=== PATIENT | female | born 1950 | race Caucasian/White ===

== ENCOUNTER 2017-01-01 08:46 | Outpatient (CLI) | payer OTHER ==
[2017-01-01 09:11] VITALS: BP 161/87; TEMP 97.7
[2017-01-01] MEDS ORDERED: PROLIA SUBCUT STA (09:12)
== END 2017-01-01 08:47 | disposition home or self-care (01) ==
LOC: OPMED 08:46
PROVIDERS: ATTEND Internal Medicine
DX: M81.0 Age-related osteoporosis without current pathological fracture (principal)
CPT/HCPCS: 96372

== ENCOUNTER 2017-07-09 09:35 | Outpatient (CLI) ==
[2017-07-09] MEDS ORDERED: PROLIA SUBCUT STA (09:57)
[2017-07-09 09:59] VITALS: BP 132/74; TEMP 98
== END 2017-07-09 09:36 | disposition home or self-care (01) ==
LOC: OPMED 09:35
PROVIDERS: ATTEND Internal Medicine
DX: M81.0 Age-related osteoporosis without current pathological fracture (principal)
CPT/HCPCS: 96372

== ENCOUNTER 2017-09-12 09:33 | Outpatient (CLI) ==
--- NOTE | 2017-09-12 10:29 | CT ---
EXAM: CT ABDOMEN AND PELVIS HISTORY: Abdominal pain, mid going to back TECHNIQUE: CT abdomen and pelvis without intravenous contrast. Images were reconstructed using 5 mm section thickness. Reformations were prepared. COMPARISON: 07/10/2010 FINDINGS: Diagnostic limitations exist without including contrast enhanced images. No focal hepatic or splenic lesions identified. Gallbladder is absent. Pancreas and adrenal glands appear normal. There is a stable 1.8 cm partially fatty right renal cortical nodule posteriorly at the lower aspect probably re presenting an angiomyolipoma. Kidneys and ureters were otherwise unremarkable. Minimal atherosclero tic disease. Stomach appears normal. Normal appendix. General bowel gas pattern and appearance is within normal limits. No uterus is identified. Normal urinary bladder. No ascites or inflammatory infiltration o f the abdominal fat. Ventral abdominal wall is intact without herniation. Bones appear appropriate for age. Lung bases a re clear. There is no pneumoperitoneum. IMPRESSION: 1. No etiology for the patient's symptoms were found. 2. 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
== END 2017-09-12 09:34 | disposition home or self-care (01) ==
LOC: RAD 09:33
PROVIDERS: ATTEND Internal Medicine
DX: R10.9 Unspecified abdominal pain (principal)

== ENCOUNTER 2018-01-22 09:54 | Outpatient (CLI) | payer OTHER ==
[2018-01-22] MEDS ORDERED: PROLIA SUBCUT STA (10:03)
[2018-01-22 10:09] VITALS: BP 146/88; TEMP 97.3
== END 2018-01-22 09:55 | disposition home or self-care (01) ==
LOC: OPMED 09:54
PROVIDERS: ATTEND Internal Medicine
DX: M81.0 Age-related osteoporosis without current pathological fracture (principal)
CPT/HCPCS: 96372

== ENCOUNTER 2018-06-14 10:13 | Emergency (ER) | payer OTHER ==
[2018-06-14 10:23] VITALS: BP 151/90; TEMP 98; BMI 39.1
[2018-06-14] MEDS ORDERED: LIDOCAINE HCL 1% SDV SUBCUT STA (10:30)
--- NOTE | 2018-06-14 10:52 | ED.PDOC ---
General ED Provider: Dr. JONI GREENWOOD Chief Complaint: Non-specific Complaint Stated Complaint: Part of peirced earring stuck in left ear canal. clipped off front of earring. Will not come out. Tender, reddened. Time Seen by Physician: 10:50 Mode of Arrival: Walk-In Information Source: Patient Primary Care Provider: JORDY CURIEL Nursing and Triage Documentation Reviewed and Agree: Yes Does patient meet sepsis criteria?: No System Inflammatory Response Syndrome: Not Applicable Sepsis Protocol: For patient's 13 years and over: Temp is 96.8 and below OR 101 and greater Pulse >90 BPM Resp >20/minute Acutely Altered Mental Status Are patient's symptoms suggestive of a new infection, such as: -Pneumonia -Skin, Soft Tissue -Endocarditis -UTI -Bone, Joint Infection -Implantable Device -Acute Abdominal Infection -Wound Infection -Meningitis -Blood Stream Catheter Infection -Unknown EENT Complaint Exam - Ear Complaint/Exam Onset/Duration: 1 day Symptoms Are: Still present Timing: Constant Initial Severity: Moderate Current Severity: Moderate Aggravating: Reports: Foreign body (on the left ear lobe ), Tugging on ear Alleviating: Reports: None Associated Signs and Symptoms: Reports: Foreign body sensation, Pain to external ear. Denies: Ear trauma, Ear swelling, Discharge, Fever, Hearing loss , Bleeding, Sore throat, Headache, URI symptoms, Rash, Pain to external face Ear Surgical History: None Vesicles to External Pinna: No Vesicles to Tragus: No Review of Systems - Review Of Systems Constitutional: Reports: No symptoms Ears, Nose, Mouth, Throat: Reports: Ear pain (left ear lobe ) Respiratory: Reports: No symptoms Cardiac: Reports: No symptoms Skin: Reports: No symptoms Neurological: Reports: Anxiety All Other Systems: Reviewed and Negative Past Medical History - Past Medical History Previously Healthy: Yes Endocrine: Reports: None Cardiovascular: Reports: None Respiratory: Reports: None Hematological: Reports: None Gastrointestinal: Reports: None Genitourinary: Reports: None Neuro/Psych: Reports: None Musculoskeletal: Reports: None Cancer: Reports: None Last Menstrual Period: unknown - Surgical History General Surgical History: Reports: None - Family History Family History: Reports: None - Social History Smoking Status: Former smoker Hx Substance Use: No Alcohol Screening: Occasionally - Immunizations Tetanus Shot up to Date: Yes (2010) Physical Exam - Physical Exam Appearance: Obese Pain Distress: Mild Eyes: RHEA, EOMI, Conjunctiva clear ENT: Nose normal Neck: Supple Respiratory: Airway patent, Breath sounds clear, Breath sounds equal, Respirations nonlabored Cardiovascular: RRR, Pulses normal, No rub, No murmur Skin: Warm, Dry Neurological: Alert, Oriented Psychiatric: Anxious Procedures - Foreign Body Removal Location of Foreign Object: left ear lobe Foreign Object: Piece of an ear ring Depth of Object: deep Type of Anesthesia: Local Medication Used: Yes: Lidocaine Prep: Saline Irrigation: No Skin Incised: Yes Instruments Used: Yes: Forceps, Other (scaple ) Foreign Body Identified and Removed: Yes (small piece of metal earing ) Critical Care Note - Critical Care Note Total Time (mins): 0 Course - Course Orders, Labs, Meds: Orders Category Date Time Status Lidocaine HCl/Pf [Lidocaine HCl 1% Sdv] MEDS 06/14/18 10:30 Discontinued 5 ml SUBCUT ONCE STA Medications Discontinued Medications Generic Name Dose Route Start Last Admin Trade Name Freq PRN Reason Stop Dose Admin Lidocaine HCl 5 ml 06/14/18 10:30 Lidocaine Hcl 1% Sdv SUBCUT 06/14/18 10:31 ONCE STA Vital Signs: Temp Pulse Resp BP Pulse Ox 06/14/18 10:14 98.0 F 78 20 151/90 H 93 L Departure - Departure Time of Disposition: 10:52 Disposition: HOME SELF-CARE Discharge Problem: Foreign body in left ear lobe Qualifiers: Encounter type: initial encounter Qualified Code(s): S00.452A - Superficial foreign body of left ear, initial encounter Instructions: Ear Foreign Body (ED), Eye Foreign Body (ED) Condition: Stable Pt referred to PMD for follow-up: Yes IPMP verified?: No Additional Instructions: Keep area clean and dry Do not use earring for 2 weeks. Follow up with PCP in 3 days Return if worse or you note sign of infection. Allergies/Adverse Reactions: Allergies CONTRAST DYE Adverse Reaction (Uncoded 05/10/15 09:19) Home Medications: Ambulatory Orders Atorvastatin Calcium [Lipitor] 40 mg PO DAILY 05/10/15 Montelukast Sodium [Singulair] 10 mg PO DAILY 05/10/15 Multivitamin 1 cap PO DAILY 05/10/15 Pantoprazole Sodium [Protonix] 40 mg PO DAILY 05/10/15 Disposition Discussed With: Patient
== END 2018-06-14 11:03 | disposition home or self-care (01) ==
LOC: ED 10:13
DX: S00.452A Superficial foreign body of left ear, initial encounter (principal)
CPT/HCPCS: 99282

== ENCOUNTER 2018-09-15 10:00 | Outpatient (RCR) ==
--- NOTE | 2018-09-10 14:40 | RS.OPPTEV2 ---
Date of Note: 09/10/18 Visit #: 1 Number of visits approved by Insurance: NA Date of Evaluation: 09/10/18 Payer Source: MEDICARE Surgery Performed?: No Treatment Diagnosis: Left foot pain, Plantar fasciitis History of Condition/Mechanism of Injury:: Patient reports ongoing pain with left heel for over 6 months. States she had pain in the right foot, but it has resolved. She reports a history of fracture with no surgery to the left foot, but no recent injury that caused this pain in the foot/heel. Prior Level of Function.....Patient was independent with: ADL's, Self Care, Work /Vocation, Caregiving, Ambulation/Mobility, Community Integration/Access Functional Limitations: Sleep, ADL's, Standing, Squatting, Ambulation, Community Access/Integration Current Subjective/complaints:: Patient reports she has tried several things to reduce the pain in the left foot, including shoe inserts, wearing a boot, stretching, rolling tennis ball, and icing. States she received an injection into the foot yesterday. States she had one 4-6 months ago, which helped temporarily. She reports pain with every step. States she has avoided activity because of the pain and has gained weight. She hopes to get some relief with therapy to avoid surgery. She has sporadic tingling and burning in the forefoot and toes of both feet. She reports pain will wake her up at times. Describes pain in the heel and cramping into the arch of the foot. She is considering buying a Plantar Fasciitis Night Sock. States X ray of left foot revealed a significant spur on the heel. Treatment Side (optional): Left Medical History Medical History Comments:: Hx includes Fx of the left foot. Smoking Status: Former smoker Hx Home Medications: Lipitor, singulair, protonix, Mobic (takes for her shoulder ) Patient's Goals: Her goal is to get relief of left foot pain and avoid surgery. Pain Assessment - Pain Description Pain Location: Left heel Current Pain Intensity: 6/10 Worst Pain Intensity: 10/10 Functional Outcome Measure LE Functional Scale: 36 (36/80= 55% impairment) - G Codes & Severity Modifier G Codes & Modifier: NA Source of G Code score: NA Observation - Observation Inspection: Left foot demonstrates a .25 cm reddish area on the medial side of the calcaneus where the patients says the injection was given. Demonstrates no other redness or other discoloration. Exhibits slight puffiness posterior and inferior to the left lateral malleoli. Comments: In standing, right foot demonstrates minimal longitudinal arch. left foot demonstrates a normal longitudinal arch. Girth Measurement Lower: Left malleoli 23.5 cm, metheads 20.75 cm Gait - Gait Pattern Gait Comments: Mrs. Gacria ambulates in the department without an assistive device with decreased stance on the left LE and decreased heelstrike. - Left Ankle ROM Left DF with Knee extension: 8 degrees Comments: All else of left ankle is WFL's. - Right Ankle ROM Right DF with Knee extension: 10 degrees Comments: All else of right ankle is WFL's. - Left Ankle Strength Left Dorsiflexion: 5 Normal Left Plantar flexion: 5 Normal Left Eversion: 4+ Good + Left Inversion: 4+ Good + Comments: knee strength 5/5. - Right Ankle Strength Right Dorsiflexion: 5 Normal Right Plantarflexion: 5 Normal Right Eversion: 4+ Good + Right Inversion: 4+ Good + Comments: Knee strength 5/5. Palpation Comments:: Tenderness reported along the medial aspect of the heel, which was also the injection site. Reports mild tenderness over the volar aspect of the heel, more anteriorly over the insertion of the plantar fascia. Sensation - Sensation Right Lower Extremity: Intact/Normal Left Lower Extremity: Intact/Normal Additional Comments: Additional Comments: Unable to perform valid Squeeze test to the calcaneus due to moderate tenderness already present from injection yesterday. - Treatment Modality: Ultrasound Parameters/Method Applied: 1.5 w/cm2 continuous X 10 mins to left foot: emphasis on volar, medial, and lateral aspect of the heel. Patient Position: Sitting (with leg on stool) Interventions - Exercise/Activities/Manual Therapy Exercises/Activities: Pt already performing heelcord stretching with band and off a step. Reviewed these stretches and recommended she hold the stretch at least 20 seconds. Also instructed patient in plantar fascia stretch and towel/ toe curl exercises for anterior tib. Advised her to roll a frozen water bottle on the bottom of her foot, especially at the end of the day. Manual Therapy: following US, manual therapy to the plantar fascia was performed along with stretching of the plantar fascia X 6-7 mins. HOME EXERCISE PROGRAM: Heelcord stretching, plantar fascia stretching, towel/ toe curl for anterior tib. - Charges Timed Code Treatment Minutes: 17 mins Total Treatment Time: 50 mins Procedures billed for this date of service:: Christine Boogie, US EVALUATION COMPLEXITY LEVEL EVALUATION COMPLEXITY LEVEL: HISTORY: Low, EXAM OF BODY SYSTEMS: Low (Left ankle pain, ROM, MS), CLINICAL PRESENTATION: Low, CLINICAL DECISION MAKING: Low Assessment Assessment: Mrs. Garcia presents to therapy with a diagnosis of left foot Plantar Fasciitis. She has had pain for over 6 months, despite trying several forms of treatment:shoe inserts, stretching, icing, wearing a boot. She reports being less active due to pain with weight bearing on the left heel. She exhibits an antalgic gait due to left heel pain and tenderness along the volar and medial aspect of the calcaneus. She demonstrates potential to benefit from modalities, manual therapy to the plantar fascia and exercises to increase ankle strength and flexibility. Patient Education: Education of diagnosis, Body/Joint mechanics, Home Exercise Program, Home Safety, Activity Modification, Education of Plan of Care Rehab Potential: Good Short Term Goals Goal #1: Pt independent and compliant in HEP. Goal to be met by: 09/24/18 Goal #2: Tenderness over left calcaneus decreased to minimal. Goal to be met by: 09/24/18 Goal #3: Left ankle strength 5/5 throughout. Goal to be met by: 09/24/18 [facility] Goals Goal #1: Pt knows HEP and to continue ex's to maintain functional level at D/C. Goal to be met by: 10/25/18 Goal #2: Score on LE functional scale improved to 56/80. Goal to be met by: 10/25/18 Goal #3: Pt able to amb. community distances with minimal Left heel pain. Goal to be met by: 10/25/18 Plan - Treatment to be Provided Procedures: Therapeutic Exercises, Therapeutic Activity, Manual Therapy, Splinting/Taping, Patient Education Modalities: Ultrasound/Phonophoresis, Cryotherapy, Hot Packs - Treatment Plan Frequency: 2-3 X week Duration: 6 weeks Dates of [facility] Goals: 10/25/18 Expiration date of current Insurance Approval:: NA - Treatment Code (1) Foot pain Code(s): M79.673 - PAIN IN UNSPECIFIED FOOT Qualifiers: Laterality: left Qualified Code(s): M79.672 - Pain in left foot (2) Plantar fasciitis Code(s): M72.2 - PLANTAR FASCIAL FIBROMATOSIS Comments: M72.2 Plantar fasciitis of left foot (3) Heel spur Code(s): M77.30 - CALCANEAL SPUR, UNSPECIFIED FOOT Qualifiers: Laterality: left Qualified Code(s): M77.32 - Calcaneal spur, left foot
--- NOTE | 2018-09-15 15:38 | RS.OPPTDN ---
Subjective Date of Note: 09/15/18 Visit #: 2 Number of visits approved by Insurance: Reassess at 10th Date of Evaluation: 09/10/18 Payer Source: MEDICARE Treatment Diagnosis: Left foot pain, Plantar fasciitis Current Subjective/complaints:: Patient says she is unable to see any change in heel pain yet. She says she is trying HEP. Patient also c/o R shoulder pain and says she will be wanting to start PT for it. - Treatment Modality: Ultrasound Parameters/Method Applied: continuous @ 1.5 w/cm2 x 12 mins to the L heel, lateral arch and medial arch Patient Position: Supine - Heat/Cryotherapy Treatment: Hot Pack (surrounding the L foot and heel x 15 mins supine) Interventions - Exercise/Activities/Manual Therapy Exercises/Activities: Pt received passive stretching to the L foot for heel cords, great toe for plantar surface. Patient began isometrics manually for all dir of the L foot 2x5. REceived education of diagnosis, anatomy, and HEP. Also, encouraged frozen water bottle to roll foot over for pain relief. Total minutes of Exercise: 13 Manual Therapy: na HOME EXERCISE PROGRAM: Heelcord stretching, plantar fascia stretching, towel/ toe curl for anterior tib. - Charges Timed Code Treatment Minutes: 25 Total Treatment Time: 39 Procedures billed for this date of service:: hp, u/s, ex Assessment: Patient appears to cheri all therex and modalities well. She is not able to feel any improvement yet, but should benefit from further treatment of modalitis and therex to improve flexibility, pain, and ease pain with ambulation. Patient Education: Education of diagnosis, Home Exercise Program, Education of Plan of Care Patient demonstrates compliance with HEP?: Yes Short Term Goals Goal #1: Pt independent and compliant in HEP. Goal to be met by: 09/24/18 Progress towards Goal:: Progressing Goal #2: Tenderness over left calcaneus decreased to minimal. Goal to be met by: 09/24/18 Goal #3: Left ankle strength 5/5 throughout. Goal to be met by: 09/24/18 [facility] Goals Goal #1: Pt knows HEP and to continue ex's to maintain functional level at D/C. Goal to be met by: 10/25/18 Goal #2: Score on LE functional scale improved to 56/80. Goal to be met by: 10/25/18 Goal #3: Pt able to amb. community distances with minimal Left heel pain. Goal to be met by: 10/25/18 Plan Dates of [employer] Goals: 10/25/18 Expiration date of current Insurance Approval:: 10/25/18 PLAN: Continue with modalities and therex to the L foot.
--- NOTE | 2018-09-17 08:48 | RS.CXNS ---
Date of scheduled appointment: 09/17/18 Type: Cancel Reason for Cancel/NS: inclement weather.
== END 2018-09-18 23:59 ==
PROVIDERS: ATTEND Nurse Practitioner Family
DX: M72.2 Plantar fascial fibromatosis (principal)

== ENCOUNTER 2018-10-01 11:00 | Outpatient (RCR) ==
--- NOTE | 2018-09-19 14:50 | RS.OPPTDN ---
Subjective Date of Note: 09/19/18 Visit #: 3 Number of visits approved by Insurance: REassess at 10th Date of Evaluation: 09/10/18 Payer Source: MEDICARE Treatment Diagnosis: Left foot pain, Plantar fasciitis Current Subjective/complaints:: Patient reports her heel is more sore the past few days. She somewhat attributes the weather. She says she actually had soreness after her steroid injection too and expected to have more relief. She says she is performing HEP and is also active with yoga, but c/o R shoulder pain and sciatic pain as well. - Treatment Modality: Ultrasound Parameters/Method Applied: Continuous @ 1.5 w/cm2 x 10 mins to the L heel/ lateral and medial arch Patient Position: Supine - Heat/Cryotherapy Treatment: Hot Pack (15 mins to the L foot/heel in supine) Interventions - Exercise/Activities/Manual Therapy Exercises/Activities: Pt received passive stretching to the L foot for heel cords, great toe for plantar surface. Patient began isometrics manually for all dir of the L foot 2x5. Red tband for all dir of L ankle x 10 reps. Performed passive hamstring stretching to the L x 3. REceived education of diagnosis, anatomy, and HEP. Also, encouraged frozen water bottle to roll foot over for pain relief. Total minutes of Exercise: 15 Manual Therapy: na HOME EXERCISE PROGRAM: Heelcord stretching, plantar fascia stretching, towel/ toe curl for anterior tib. - Charges Timed Code Treatment Minutes: 25 Total Treatment Time: 40 Procedures billed for this date of service:: hp, u/s, ex Assessment: Patient continues with mild to moderate L heel/lateral and medial arch pain. She has not felt any relief yet from u/s, but has only had 2 visits. May modify treatment to add hydrocortisone for phonophoresis next session. ROM is WNL, but could benefit from strengthening in general to the ankle/foot. Patient Education: Education of diagnosis, Home Exercise Program, Education of Plan of Care Patient demonstrates compliance with HEP?: Yes Short Term Goals Goal #1: Pt independent and compliant in HEP. Goal to be met by: 09/24/18 Progress towards Goal:: Progressing Goal #2: Tenderness over left calcaneus decreased to minimal. Goal to be met by: 09/24/18 Goal #3: Left ankle strength 5/5 throughout. Goal to be met by: 09/24/18 [employer] Goals Goal #1: Pt knows HEP and to continue ex's to maintain functional level at D/C. Goal to be met by: 10/25/18 Goal #2: Score on LE functional scale improved to 56/80. Goal to be met by: 10/25/18 Goal #3: Pt able to amb. community distances with minimal Left heel pain. Goal to be met by: 10/25/18 Plan Dates of Retirement Goals: 10/25/18 Expiration date of current Insurance Approval:: 10/25/18 PLAN: Patient to continue, possibly receiving phonophoresis and strengthening.
--- NOTE | 2018-09-23 15:33 | RS.CXNS ---
Date of scheduled appointment: 09/23/18 Type: Cancel Reason for Cancel/NS: no reason given
--- NOTE | 2018-09-26 14:35 | RS.OPPTDN ---
Subjective Date of Note: 09/26/18 Visit #: 4 Number of visits approved by Insurance: Reassess at 10th Date of Evaluation: 09/10/18 Payer Source: MEDICARE Treatment Diagnosis: Left foot pain, Plantar fasciitis Current Subjective/complaints:: Patient says she was sick earlier this week and had to miss her appt. She says she is better now. Reports her foot pain is on the "outside and inside of the heel" pointing to the medial and lateral line of the calcaneal area. - Treatment Modality: Ultrasound Parameters/Method Applied: PHONOPHORESIS continuous @ 1.5 w/cm2 x 12 mins to the L medial and lateral surface of heel Patient Position: Supine - Heat/Cryotherapy Treatment: Hot Pack (L heel and arch in supine x 15 mins) Interventions - Exercise/Activities/Manual Therapy Exercises/Activities: Pt received passive stretching to the L foot for heel cords, great toe for plantar surface. Patient continued with isometrics manually for all dir of the L foot 2x5. Green tband for all dir of L ankle 2 x 10 reps. Bilateral ankle isometrics with ball between 2x10. Performed passive hamstring stretching to the L x 3. Patient was given red tband for home for all ankle motions. Handout provided. REceived education of diagnosis, anatomy , and HEP. Also, encouraged frozen water bottle to roll foot over for pain relief. Total minutes of Exercise: 14 Manual Therapy: na HOME EXERCISE PROGRAM: Heelcord stretching, plantar fascia stretching, towel/ toe curl for anterior tib. - Charges Timed Code Treatment Minutes: 26 Total Treatment Time: 51 Procedures billed for this date of service:: hp, u/s, ex Assessment: Patient experiencing slightly less pain today. She had been sick this week and only able to make 1 appt, which she will only be able attend once next week as well. Hydrocortisone was added to u/s today to verify any change. No allergy to this medication and verified patient is not diabetic as to not raise BS. Patient demo good ROM actively and is progressing with strengthening. Patient Education: Education of diagnosis, Home Exercise Program, Education of Plan of Care Patient demonstrates compliance with HEP?: Yes Short Term Goals Goal #1: Pt independent and compliant in HEP. Goal to be met by: 09/24/18 Progress towards Goal:: Progressing Goal #2: Tenderness over left calcaneus decreased to minimal. Goal to be met by: 09/24/18 Progress towards Goal:: Progressing (slightly better this week) Goal #3: Left ankle strength 5/5 throughout. Goal to be met by: 09/24/18 [employer] Goals Goal #1: Pt knows HEP and to continue ex's to maintain functional level at D/C. Goal to be met by: 10/25/18 Goal #2: Score on LE functional scale improved to 56/80. Goal to be met by: 10/25/18 Goal #3: Pt able to amb. community distances with minimal Left heel pain. Goal to be met by: 10/25/18 Plan Dates of [employer] Goals: 10/25/18 Expiration date of current Insurance Approval:: 10/25/18 PLAN: Patient to continue with phonophoresis and progress strengthening.
--- NOTE | 2018-10-01 16:39 | RS.OPPTDN ---
Subjective Date of Note: 10/01/18 Visit #: 5 Number of visits approved by Insurance: Reassess at 10th Date of Evaluation: 09/10/18 Payer Source: MEDICARE Treatment Diagnosis: Left foot pain, Plantar fasciitis Current Subjective/complaints:: Patient says her foot is feeling much better today. She says generally she is feeling better also as she had been ill. - Treatment Modality: Ultrasound Parameters/Method Applied: PHONOPHORESIS using hydrocortisone @ 1.5 w/cm2 continuous x 12 mins to the L medial heel Patient Position: Supine - Heat/Cryotherapy Treatment: Hot Pack (surrounding the L foot/heel x 20 mins in supine) Interventions - Exercise/Activities/Manual Therapy Exercises/Activities: Pt received passive stretching to the L foot for heel cords, great toe for plantar surface. Patient continued with isometrics manually for all dir of the L foot 2x5. Green tband for all dir of L ankle 2 x 10 reps. Bilateral ankle isometrics with ball between 2x10. Performed passive hamstring stretching to the L x 3. REceived education of diagnosis, anatomy, and HEP. Also, encouraged frozen water bottle to roll foot over for pain relief. Total minutes of Exercise: 17 Manual Therapy: na HOME EXERCISE PROGRAM: Heelcord stretching, plantar fascia stretching, towel/ toe curl for anterior tib. - Charges Timed Code Treatment Minutes: 29 Total Treatment Time: 44 Procedures billed for this date of service:: hp, u/s, ex Assessment: Patient experiencing pain relief with modification of u/s to using hydrocortisone to the L foot. She is able to perform all HEP without difficulty progressing with tbands in the dept without c/o's. She has been only able to attend once this week and once next week due to MD appts and imaging. Encouraged her to try to attend at least [facility] to see more progress. Patient Education: Education of diagnosis, Home Exercise Program, Education of Plan of Care Patient demonstrates compliance with HEP?: Yes Short Term Goals Goal #1: Pt independent and compliant in HEP. Goal to be met by: 09/24/18 Progress towards Goal:: Progressing Goal #2: Tenderness over left calcaneus decreased to minimal. Goal to be met by: 09/24/18 Progress towards Goal:: Progressing (slightly better this week) Goal #3: Left ankle strength 5/5 throughout. Goal to be met by: 09/24/18 [employer] Goals Goal #1: Pt knows HEP and to continue ex's to maintain functional level at D/C. Goal to be met by: 10/25/18 Goal #2: Score on LE functional scale improved to 56/80. Goal to be met by: 10/25/18 Goal #3: Pt able to amb. community distances with minimal Left heel pain. Goal to be met by: 10/25/18 Plan Dates of [employer] Engineer Goals: 10/25/18 Expiration date of current Insurance Approval:: 10/25/18 PLAN: Patient to try to attend [facility] for phonophoresis and progressed strengthening to the L foot.
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
== END 2018-10-16 23:59 ==
PROVIDERS: ATTEND Nurse Practitioner Family
DX: M72.2 Plantar fascial fibromatosis (principal)

== ENCOUNTER 2019-01-23 09:50 | Outpatient (CLI) | payer OTHER ==
[2019-01-23 10:23] VITALS: TEMP 97.5
[2019-01-23] MEDS ORDERED: PROLIA SUBCUT STA (10:24)
== END 2019-01-23 09:51 | disposition home or self-care (01) ==
LOC: OPMED 09:50
PROVIDERS: ATTEND Internal Medicine
DX: Z78.0 Asymptomatic menopausal state (principal); M19.90 Unspecified osteoarthritis, unspecified site
CPT/HCPCS: 96372